=== PATIENT | female | born 1975 | race Caucasian/White ===

== ENCOUNTER 2019-08-25 12:38 | Outpatient (CLI) | payer OTHER, SELFPAY ==
--- NOTE | ~2019-08-25 | XR_ITS ---
XR chest 2V DATE: 08/25/2019 12:59 INDICATION: Cough, fever, shortness of breath for 3 days TECHNIQUE: PA and lateral views COMPARISON: 03/29/2018 two-view chest FINDINGS: Normal heart size. No hilar or mediastinal enlargement. Mild bilateral apical capping. Ther e is a stable calcified left lower lung granuloma. No pulmonary infiltrate or consolidation, pleural effusion or pulmonary vascular congestion or pneumothorax is detected. IMPRESSION: No active cardiopulmonary disease Reviewed, dictated and finalized at location A.
== END 2019-08-25 12:39 | disposition home or self-care (01) ==
PROVIDERS: PCP Physician Assistant; Visit Provider Physician Assistant
DX: R05 Cough (principal); R50.9 Fever, unspecified; R06.02 Shortness of breath
CPT/HCPCS: 71046

== ENCOUNTER 2019-12-08 10:48 | Outpatient (CLI) | payer OTHER, SELFPAY ==
[2019-12-08 11:21] LABS: Alanine Aminotransferase 38 U/L (4-35); Albumin Level 4.3 g/dL (3.5-5.1); Alkaline Phosphatase 102 U/L (38-126); Anion Gap 6 mmol/L (8-16); Aspartate Amino Transferase 68 U/L (14-36); Bilirubin,Total 0.5 mg/dL (0.2-1.3); Blood Urea Nitrogen 9 mg/dL (7-17); Calcium 8.7 mg/dL (8.4-10.2); Carbon Dioxide 28 mmol/L (22-30); Chloride 100 mmol/L (98-107); Estimated Glomerular Filt Rate > 60; Glucose 125 mg/dL (65-105); Potassium 3.8 mmol/L (3.4-5.0); Sodium 134 mmol/L (137-145)
== END 2019-12-08 10:49 | disposition home or self-care (01) ==
LOC: ANHLAB 10:50
PROVIDERS: PCP Physician Assistant; Visit Provider Physician Assistant
DX: Z79.899 Other long term (current) drug therapy (principal)
CPT/HCPCS: 36415; 80053

== ENCOUNTER 2020-04-22 11:21 | Outpatient (CLI) | payer OTHER, SELFPAY ==
--- NOTE | ~2020-04-22 | US_ITS ---
EXAMINATION: US right upper quadrant EXAM DATE: 04/22/2020 11:54 INDICATION: Elevated liver enzymes. TECHNIQUE: Multiple grayscale and Doppler images of the abdomen right upper quadrant were obtained (ru y a technologist who performed the scan) and subsequently reviewed. Comparison is made to prior exami nation from 08/08/2013. FINDINGS: The pancreatic head and body are normal in appearance. The pancreatic tail is not visualized. The l iver has normal echogenicity and contour. There are no focal liver lesions identified. There is no evidence of intrahepatic biliary duct dilation. Portal venous flow was seen in the hepatopedal, nor mal direction and has normal Doppler waveform. No right-sided hydronephrosis. Common bile duct measures 5 mm, which is normal. The gallbladder fossa is unremarkable. IMPRESSION: Unremarkable abdominal ultrasound exam. Reviewed, dictated and finalized at location B. ARYNGOLOGY PHYSICIAN
== END 2020-04-22 11:22 | disposition home or self-care (01) ==
PROVIDERS: PCP Physician Assistant; Visit Provider Physician Assistant
DX: R74.01 Elevation of levels of liver transaminase levels (principal)
CPT/HCPCS: 76705

== ENCOUNTER 2020-08-06 10:44 | Outpatient (CLI) | payer OTHER, SELFPAY ==
--- NOTE | 2020-08-07 09:52 | WPDNEUROLOGY ---
Neurology EEG Report General Information Date of Study: 08/06/20 TEST eeg DIAGNOSIS tremors CONDITION OF RECORDING awake and drowsy with multiple eye movements artifacts throughout the tracing. EEG NUMBER [id number] CLINICAL HISTORY Patient reported for the last couple of months has noted tremors in her arms. 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 EEG DESCRIPTION Basic resting occipital frequency consists of well-organized low to medium voltage 8 to 9 hertz per second alpha admixed with low-voltage 15 to 18 hertz per second beta. Multiple movement artifacts are seen throughout the tracing. Hyperventilation not done. Photic stimulation produced normal drive. Non paroxysmal. Nonfocal. Nonlateralizing. IMPRESSION No significant abnormalities noted throughout the tracing except the multiple movements artifacts.
== END 2020-08-06 10:45 | disposition home or self-care (01) ==
PROVIDERS: PCP Physician Assistant; Visit Provider Physician Assistant
DX: R25.1 Tremor, unspecified (principal)
CPT/HCPCS: 95816